=== PATIENT | female | born 1970 | race Caucasian/White ===

== ENCOUNTER 2017-12-09 12:17 | Outpatient (CLI) | payer OTHER | END 2017-12-09 17:00 | disposition home or self-care (01) | LOC: TOM 12:17 | DX: R31.21 Asymptomatic microscopic hematuria (principal); N20.0 Calculus of kidney; N13.4 Hydroureter ==

== ENCOUNTER 2018-01-29 08:31 | Outpatient (CLI) | payer OTHER ==
[2018-02-03] MEDS ORDERED: PERCOCET 10-321 EACH PO (08:50)
[2018-02-03] MEDS ORDERED: KETO10TA2 PO (08:51)
== END 2018-01-29 08:39 | disposition home or self-care (01) ==
LOC: RAD 08:31
DX: N20.1 Calculus of ureter (principal); M79.672 Pain in left foot; M79.671 Pain in right foot

== ENCOUNTER 2018-02-07 06:00 | Day surgery (SDC) | payer OTHER ==
[~2018-02-07 06:00] MED LIST: KETO10TA2 PO; PERCOCET 10-321 EACH PO
== END 2018-02-07 19:30 | disposition home or self-care (01) ==
LOC: CIR.AMB 06:00
DX: N20.0 Calculus of kidney (principal)

== ENCOUNTER 2019-06-29 05:28 | Day surgery (SDC) | payer OTHER | END 2019-06-29 14:30 | disposition home or self-care (01) | LOC: CIR.AMB 05:28 | DX: N20.1 Calculus of ureter (principal) ==